=== PATIENT | female | born 1990 | race African-American/Black ===

== ENCOUNTER → 2016-12-26 | Outpatient (CLI) | payer MEDICAID ==
[~2016-12-26] MED LIST: PRENATAL1 TA1 PO
== END ==
LOC: COL.RAD 12:30
DX: M51.14 Intervertebral disc disorders with radiculopathy, thoracic region (principal); M54.5 Low back pain

== ENCOUNTER → 2018-04-18 | Outpatient (CLI) | payer MEDICAID | LOC: MHCPAIN 10:54 | DX: G89.29 Other chronic pain (principal); M47.817 Spondylosis without myelopathy or radiculopathy, lumbosacral region; M47.814 Spondylosis without myelopathy or radiculopathy, thoracic region | CPT/HCPCS: G0463 ==

== ENCOUNTER 2021-04-30 22:18 | Observation (INO) | payer SELFPAY ==
[~2021-04-30] VITALS: Ht 165.1 cm; Wt 113.6 kg
[2021-04-30 22:55] LABS: HEMOGLOBIN 13.4 g/dl (12.5-16.0); MEAN CELL VOLUME 91 fl (80.0-100.0); MEAN CORPUSCULAR HEMOGLOBIN 30 pg (27.0-31.0); MEAN CORPUSCULAR HGB CONC 34 g/dl (33.0-37.0); MEAN PLATELET VOLUME 9.6 fl (7.4-10.4); PLATELET COUNT 176 K/mm3 (130-400); RED BLOOD COUNT 4.42 M/mm3 (4.10-5.30); REDCELL DISTRIBUTION WIDTH-CV 11.9 % (11.5-14.5)
[2021-04-30 23:10] LABS: ALANINE AMINOTRANSFERASE 102 U/L (4-34); ALBUMIN 3.7 gm/dL (3.5-5.0); ALKALINE PHOSPHATASE 82 U/L (50-136); ANION GAP 4 mmol/L (7-16); AST,SGOT 74 U/L (15-37); BILIRUBIN,TOTAL 0.7 mg/dL (0.0-1.0); BLOOD UREA NITROGEN 8 mg/dL (7-17); CALCIUM 8.9 mg/dL (8.4-10.2); CARBON DIOXIDE 27 mmol/L (22-30); CHLORIDE 104 mmol/L (98-107); CREATINE KINASE 204 U/L (30-135); CREATININE, serum 0.73 (0.52-1.25); GLUCOSE 98 mg/dL (74-106); LIPASE 148 U/L (23-300); POTASSIUM 3.4 mmol/L (3.4-5.0); SODIUM 135 mmol/L (137-145); TOTAL PROTEIN 7.1 gm/dL (6.4-8.2)
[2021-04-30 23:17] LABS: TROPONIN-I < 0.012 ng/mL (0.000-0.035)
[2021-04-30 23:30] LABS: BAND 13 % (0-10); LYMPHOCYTE 29 % (20.0-51.0); METAMYELOCYTE 1 % (0-0); NEUTROPHILS 56 % (42.0-75.2); PLATELET ESTIMATE NORMAL (NORMAL)
[2021-05-01] MEDS ORDERED: ZITHROMAX 250M250 MG PO ×2 (00:31)
[2021-05-01 03:17] VITALS: BP 134/77; PULSE 81; TEMP 98.7
--- NOTE | 2021-05-01 04:43 | NUR ---
Patient arrived to medical floor room 305 via hospital bed from ER at 02:50 am. Patient alert and oriented. Patient denies chest pain or SOB while at rest at this time. Patient reports SOB with exertion. Patient also reports generalized weakness and nausea on and off. Patient currently on room air. VS stable. IVF started per JAN. Oriented patient to the room. Assisted patient to the bathroom to void. Stand-by assist provided. Call light within reach. Will continue to monitor.
[2021-05-01 05:28] LABS: HEMATOCRIT 38.8 % (37.0-47.0); HEMOGLOBIN 12.8 g/dl (12.5-16.0); MEAN CELL VOLUME 91 fl (80.0-100.0); MEAN CORPUSCULAR HEMOGLOBIN 30 pg (27.0-31.0); MEAN CORPUSCULAR HGB CONC 33 g/dl (33.0-37.0); MEAN PLATELET VOLUME 10.2 fl (7.4-10.4); PLATELET COUNT 165 K/mm3 (130-400); RED BLOOD COUNT 4.25 M/mm3 (4.10-5.30); REDCELL DISTRIBUTION WIDTH-CV 11.9 % (11.5-14.5)
[2021-05-01 05:35] LABS: CALCIUM 8.5 mg/dL (8.4-10.2); CREATININE, serum 0.67 (0.52-1.25); POTASSIUM 3.4 mmol/L (3.4-5.0)
[2021-05-01 06:40] LABS: BAND 14 % (0-10); LYMPHOCYTE 20 % (20.0-51.0); METAMYELOCYTE 1 % (0-0); NEUTROPHILS 60 % (42.0-75.2); PLATELET ESTIMATE NORMAL (NORMAL)
[2021-05-01 08:32] VITALS: BP 128/87; PULSE 66; TEMP 97.9
--- NOTE | 2021-05-01 09:30 | NUR ---
Pt awake and alert upon entry, no C/O pain at this time. Shift assessments complete, left Pt call light in reach, bed in lowest position.
[2021-05-01 12:05] VITALS: BP 139/90; PULSE 72; TEMP 98.1
[2021-05-01] MEDS ORDERED: DOXYCYCLINE 10100 MG PO (12:26)
[2021-05-01] MEDS ORDERED: DECADRON6 MG PO (12:26)
[2021-05-01] MEDS ORDERED: OMNICEF 300MG300 MG PO (12:26)
[2021-05-01] MEDS ORDERED: ZOFRAN ODT4 MG PO (12:27)
--- NOTE | 2021-05-01 17:08 | NUR ---
Pt discharged to home, discussed discharge packet with Pt, answered questions. Pt escorted to entrance by PCT. Pt left with family via private transportation.
== END 2021-05-01 17:10 | disposition home or self-care (01) ==
LOC: COL.ER 22:18 → MEDICAL 05-01 02:02
PROVIDERS: Emergency Medicine; Student in an Organized Health Care Education/Training Program; ADMIT Student in an Organized Health Care Education/Training Program
DX: U07.1 COVID-19 (principal); R65.10 Systemic inflammatory response syndrome (SIRS) of non-infectious origin without acute organ dysfunction; F41.9 Anxiety disorder, unspecified; R74.01 Elevation of levels of liver transaminase levels
CPT/HCPCS: G0378; J0696; J1100; J1650; J1885; J2060; J2550; J7030; J8540

== ENCOUNTER 2021-12-31 12:29 | Emergency (ER) | payer OTHER ==
[~2021-12-31] VITALS: Ht 162.6 cm; Wt 104.5 kg
[~2021-12-31 12:29] MED LIST changes: +DECADRON6 MG PO; +DOXYCYCLINE 10100 MG PO; +OMNICEF 300MG300 MG PO; +ZITHROMAX 250M250 MG PO; +ZOFRAN ODT4 MG PO
[2021-12-31 12:40] VITALS: TEMP 98.2
[2021-12-31] MEDS ORDERED: LEXAPRO 10MG10 MG PO (12:46)
[2021-12-31] MEDS ORDERED: ALBUTEROL0.83 MG/ML IH (12:46)
[2021-12-31] MEDS ORDERED: TRELEGY ELLIPT1 EACH IH (12:47)
[2021-12-31 13:20] LABS: BASO # 0.1 K/mm3 (0.0-0.2); BASO % 0.8 % (0.0-2.0); EOS # 0.1 K/mm3 (0.0-0.7); EOS % 1.6 % (0.0-4.0); GRAN # 2.3 K/mm3 (1.4-6.5); GRAN % 37.2 % (42.2-75.2); HEMOGLOBIN 12.4 g/dl (12.5-16.0); LYMPH # 3.1 K/mm3 (1.2-3.4); LYMPH % 50.1 % (20.0-51.0); MEAN CELL VOLUME 91 fl (80.0-100.0); MEAN CORPUSCULAR HEMOGLOBIN 31 pg (27-31); MEAN CORPUSCULAR HGB CONC 34 g/dl (33.0-37.0); MONO # 0.6 K/mm3 (0.1-0.6); PLATELET COUNT 285 K/mm3 (130-400); RED BLOOD COUNT 4.01 M/mm3 (4.10-5.30); REDCELL DISTRIBUTION WIDTH-CV 12.5 % (11.5-14.5)
[2021-12-31 13:23] LABS: HEMATOCRIT 36.6 % (37.0-47.0)
[2021-12-31 13:40] LABS: BILIRUBIN,TOTAL 0.3 mg/dL (0.2-1.2); C-REACTIVE PROTEIN 0.23 mg/dL (0.00-0.50); CALCIUM 9.8 mg/dL (8.4-10.2); CREATININE, serum 0.82 mg/dL (0.57-1.11); POTASSIUM 3.7 mmol/L (3.5-4.5)
[2021-12-31 13:45] LABS: TROPONIN-I 0.01 ng/mL (0.00-0.033)
[2021-12-31 15:23] VITALS: BP 122/70; PULSE 109
== END 2021-12-31 15:30 | disposition home or self-care (01) ==
LOC: COL.ER 12:29
PROVIDERS: Nurse Practitioner Primary Care
DX: J45.909 Unspecified asthma, uncomplicated (principal); Z86.16 Personal history of COVID-19; Z88.6 Allergy status to analgesic agent

== ENCOUNTER → 2022-07-18 | Outpatient (CLI) | payer OTHER ==
[~2022-07-18] MED LIST changes: +ALBUTEROL0.83 MG/ML IH; +LEXAPRO 10MG10 MG PO; +TRELEGY ELLIPT1 EACH IH
== END ==
LOC: COL.PUL 09:50
DX: R06.02 Shortness of breath (principal)
CPT/HCPCS: J7674